=== PATIENT | female | born 1935 | race African-American/Black ===

== ENCOUNTER 2018-04-10 08:03 | Day surgery (SDC) | payer MEDICARE, MEDICAID ==
--- NOTE | 2018-04-08 15:08 | Pre-Procedure Note/Attestation ---
Pre-Procedure Note/Attestation Complete Prior to Procedure Planned Procedure: left Procedure Narrative: phaco with IOL Indications for Procedure Pre-Operative Diagnosis: cataract Attestation I attest that I discussed the nature of the procedure; its benefits; risks and complications; and alternatives (and the risks and benefits of such alternatives ), prior to the procedure, with the patient (or the patient's legal banking representative). I attest that, if there was a reasonable possibility of needing a blood transfusion, the patient (or the patient's legal banking representative) was given the [facility] standardized written summary, pursuant to the Mark Cawood Blood Safety Act ([place] Health and Safety Code # 1645, as amended). I attest that I re-evaluated the patient just prior to the surgery and that there has been no change in the patient's H&P, except as documented below: JUNIOR VAZQUEZ Apr 08, 2018 15:08
--- NOTE | 2018-04-08 15:10 | Opthalmology H&P ---
Ophthalmology H&P H&P Chief Complaint: decreased vision in left eye HPI Vision Affects Ability to: read, focus/use eyes together HPI Narrative blurry vision Exam Visual Acuity: OD: 20/60 OS: CF Tension: OD: 20 OS: 20 Eye Exam: normal OU: external exam, palpebral fissure-width, levator function, corneas, anterior chambers, fundus exam; findings: lens - OD: ns OS: ns Assessment/Plan Diagnosis: (1) Nuclear age-related cataract, left eye Treatment Plan: cataract extraction w/ lens implant Goals of Treatment: improvement of vision, enhance quality of life Attestation Attestation The risks and benefits of the surgery as well as alternative procedures were explained to the patient in detail. JUNIOR VAZQUEZ Apr 08, 2018 15:10
[2018-04-09 11:17] LABS: ANION GAP 10 mmol/L (5-15); BLOOD UREA NITROGEN 22 mg/dL (7-18); CALCIUM 9.2 MG/DL (8.5-10.1); CARBON DIOXIDE 22 MMOL/L (21-32); CHLORIDE 106 MMOL/L (98-107); CREATININE 0.8 MG/DL (0.55-1.30); POTASSIUM 4.5 MMOL/L (3.5-5.1); SODIUM 138 MMOL/L (136-145)
[2018-04-09 11:18] LABS: BASOPHILS % (AUTO) 1.3 % (0.0-2.0); EOSINOPHILS % (AUTO) 1.7 % (0.0-3.0); HEMATOCRIT 43.7 % (37.0-47.0); HEMOGLOBIN 13.7 G/DL (12.0-16.0); LYMPHOCYTES % (AUTO) 48.6 % (20.0-45.0); MEAN CORPUSCULAR VOLUME 82 FL (80-99); NEUTROPHILS % (AUTO) 40.3 % (45.0-75.0); PLATELET COUNT 307 K/UL (150-450); RED BLOOD COUNT 5.32 M/UL (4.20-5.40); RED CELL DISTRIBUTION WIDTH 14.1 % (11.6-14.8); WHITE BLOOD COUNT 9.2 K/UL (4.8-10.8)
--- NOTE | 2018-04-09 17:45 | Pre-op HX & Phy Repo 2 SIG ---
DATE OF ADMISSION: 04/10/2018 PRESURGICAL INTERNAL MEDICINE HISTORY AND PHYSICAL DATE OF EVALUATION: 04/09/2018. REASON FOR EVALUATION: I was asked by Dr. Levi Sarkar to see this 82-year-old female, who is going for elective surgery on the left eye. The patient has a cataract left eye. The patient was evaluated. Chart was reviewed. The patient has dementia and information is obtained from the daughter at bedside. PAST MEDICAL HISTORY AND REVIEW OF SYSTEMS: Remarkable for hypertension, permanent pacemaker placed last year, diabetes mellitus insulin-dependent, right ear tumor, radiation, history of chronic obstructive pulmonary disease, congestive heart failure, and chronic vertigo. The patient is wheelchair bound. No history of heart attack. No history of thyroid problems. No history of peptic ulcer disease or bleeding. No history of renal failure or anemia. PAST SURGICAL HISTORY: Permanent pacemaker and behind left ear tumor radiation. PRESENT MEDICATIONS: Include Symbicort inhaler and albuterol inhaler. Also, the patient uses a hand-held nebulizer at home. No oxygen. The patient has a back pain and uses Dermott 5 and Motrin. The patient is on Lasix 20 mg, Lantus 10 units at bedtime, amlodipine 5 mg, Celebrex 200 mg, Pepcid 20 mg, and . ALLERGIES: Not known. FAMILY HISTORY: Mother has hypertension. Father unknown. HABITS: The patient smoked in the past for about more than 60 years. Alcohol in the past. No street drugs. PHYSICAL EXAMINATION: GENERAL: Alert, overweight female, in her 80s. She is in a wheelchair. The patient's BMI is 37.7. VITAL SIGNS: Blood pressure 104/84, temperature 97.4, pulse 80, respirations 20, and O2 saturation 96% on room air. SKIN: Dry and warm. No diaphoresis. No rashes. No open wound. LYMPH NODES: Not enlarged. HEENT: Head, normocephalic. Ears, clear. Eyes, full description per Dr. Levi Sarkar. Mouth, clear and moist. Absent teeth. NECK: Supple. No jugular venous distention. No palpable mass. Thyroid gland, not enlarged. CHEST: Mild kyphosis. LUNGS: Few rhonchi on the bases, bilateral. HEART: Pacemaker, 80 beats per minute. No murmur. No S3, S4. ABDOMEN: Soft. Obese. Liver and spleen not enlarged. EXTREMITIES: No edema. No varicose vein. No calf tenderness. GENITOURINARY: No dysuria. No CVA tenderness. NEUROLOGIC: Dementia and vertigo. DIAGNOSTIC DATA: ECG, AV dual paced rhythm, 80 per minute. LABORATORY DATA: Lab work pending. IMPRESSION: 1. Cataract, left eye. 2. Insulin-dependent diabetes mellitus. 3. Hypertension, controlled. 4. Chronic obstructive pulmonary disease. 5. Permanent pacemaker. 6. Vertigo. 7. Congestive heart failure. PLAN: Cataract extraction, left eye with intraocular lens implant per Dr. Levi Sarkar. CONCLUSION: The patient is a 82-year-old with multiple problems including dementia, permanent pacemaker, congestive heart failure, and chronic obstructive pulmonary disease. The patient's blood sugar and blood pressure controlled. The patient is to be NPO after midnight tonight. I explained to daughter and the patient's condition optimized for surgery. Thank you very much, Dr. Sarkar, for the privilege to participate in presurgical care of this interesting patient. Brandon Zuluaga M.D. DR: PHIL JOB#: [id number] CC:
[2018-04-10] VITALS (11 sets, daily range): BP systolic 102–136; BP diastolic 60–79
[~2018-04-10] VITALS: Ht 152.4 cm; Wt 89.8 kg
[~2018-04-10 08:03] MED LIST: Akten 3.5% 1ml Btl LEFT EYE ONE; CELEBREX200 MG ORAL; Dexamethasone 4mg/ml vial ONE; FAMOTIDINE20 MG ORAL; FUROSEMIDE20 M1 ORAL; IBUPROFEN600 MG ORAL; Maxitrol Opth Oint 3.5gm ONE; NORCO 5-325 TA1 EACH ORAL; NORVASC5 MG ORAL; NS Irrig 1000ml ONE; PAROXETINE HCL10 MG ORAL; Pilocarpine 2% Opth 15ml Soln ONE; Pred Forte 1% Opth Susp 1ml ONE; Proparacaine 0.5% Opth Soln 15ml LEFT EYE ONE; SYMBICORT 80-10.2 G1 IH; Tetracaine 0.5% Opth 4ml Soln LEFT EYE ONE; VENTOLIN HFA18 GM INH
[2018-04-10] MEDS: Phenylephrine 10% Opth Soln 5ml LEFT EYE SCH ×3 (10:46→11:15)
[2018-04-10] MEDS: Tobramycin Op Soln 0.3% 5ml LEFT EYE SCH ×3 (10:46→11:15)
[2018-04-10] MEDS: Diclofenac Sod 0.1% Op Soln LEFT EYE SCH ×3 (10:47→11:15)
[2018-04-10] MEDS: Tropicamide 1% Opth 15ml Soln LEFT EYE SCH ×3 (10:47→11:16)
[2018-04-10] MEDS: Cyclopentolate 1% Opth Sol 2ml LEFT EYE SCH ×3 (10:47→11:15)
[2018-04-10] MEDS ORDERED: Midazolam 2mg/2ml Inj ONE (11:54)
[2018-04-10] MEDS ORDERED: LR 1000ml 1,000 ML IVLG SCH (12:25)
--- NOTE | 2018-04-10 12:25 | Anethesia Preoperative Eval ---
Anesthesia Pre-op PMH/ROS General Date of Evaluation: Apr 10, 2018 Time of Evaluation: 12:01 Anesthesiologist: Tammie ASA Score: ASA 3 Mallampati Score Class I : Soft palate, uvula, fauces, pillars visible Class II: Soft palate, uvula, fauces visible Class III: Soft palate, base of uvula visible Class IV: Only hard plate visible Mallampati Classification: Class III Surgeon: Antonina Diagnosis: L eye cataract Surgical Procedure: L eye cataract extraction Anesthesia History: none Social History: smoking - h/o Family History: no anesthesia problems Allergies: Coded Allergies: No Known Allergies (Unverified , 04/09/18) Medications: see eMAR Past Medical History Cardiovascular: Reports: HTN, arrhythmia - pacemaker in place Pulmonary: Reports: COPD; Denies: asthma, PINO, other Gastrointestinal/Genitourinary: Reports: GERD; Denies: CRI, ESRD, other Neurologic/Psychiatric: Reports: dementia - mild; Denies: CVA, depression/anxiety, TIA, other Endocrine: Reports: hypothyroidism; Denies: DM, steroids, other HEENT: Reports: cataract (L), cataract (R); Denies: glaucoma, [place] (L), [place] (R), other Hematology/Immune: Denies: anemia, DVT, bleeding disorder, other Musculoskeletal/Integumentary: Reports: DJD; Denies: OA, RA, DDD, edema, other Other: obesity PMH Narrative: as above PSxH Narrative: See H&P Anesthesia Pre-op Phys. Exam Physician Exam Last Vital Signs Date Time Temp Pulse Resp B/P (MAP) Pulse Ox O2 Delivery O2 Flow Rate FiO2 04/10/18 10:55 Room Air 04/10/18 10:49 97.7 81 18 120/60 (80) 95 97.7 Constitutional: NAD, other Neurologic: CN 2-12 intact Cardiovascular: RRR Respiratory: CTA Gastrointestinal: other - obesity Airway Exam Mallampati Score: Class III MO: limited Neck: short ROM: limited Teeth: missing Dentures: no upper, no lower Anesthesia Pre-op A/P Labs see chart Studies Pre-op Studies: EKG Risk Assessment & Plan Assessment: ASA 3 Plan: MAC Status Change Before Surgery: No Pre-Antibiotics Drug: none Chirag Cho MD Apr 10, 2018 12:25
[2018-04-10] MEDS ORDERED: DiphenhydrAMINE 50mg/ml Inj IVP PRN (12:30)
[2018-04-10] MEDS ORDERED: fentaNYL 100 mcg/2 mL IV PRN (12:30)
--- NOTE | 2018-04-10 12:45 | Immediate Post-Op Evaluation ---
Immediate Post-Op Evalulation Immediate Post-Op Evalulation Procedure: L eye cataract extraction with IOL Date of Evaluation: Apr 10, 2018 Time of Evaluation: 12:44 IV Fluids: 200 Blood Products: none Estimated Blood Loss: none Urinary Output: none Blood Pressure Systolic: 134 Blood Pressure Diastolic: 72 Pulse Rate: 80 Respiratory Rate: 20 O2 Sat by Pulse Oximetry: 98 Temperature (Fahrenheit): 97.5 Pain Score (1-10): 1 Nausea: No Vomiting: No Complications none Patient Status: awake, patent, none Hydration Status: adequate Chirag Cho MD Apr 10, 2018 12:45
[2018-04-10] MEDS ORDERED: BSS 15ml BTL ONE (12:56)
[2018-04-10] MEDS ORDERED: EPINEPHrine 1mg/1ml Amp ONE (12:56)
[2018-04-10] MEDS ORDERED: BSS 500ml btl ONE (12:56)
[2018-04-10] MEDS ORDERED: Sodium Hyaluronate 14 mg/ml 0.85ml ONE (12:57)
[2018-04-10] MEDS ORDERED: Sodium Hyaluronate 10 mg/ml 0.85ml ONE (12:57)
[2018-04-10] MEDS ORDERED: Povidone-Iodine 5% opth solution ONE (12:57)
--- NOTE | 2018-04-10 15:02 | 48 Hour Post Anesthesia Eval ---
Post Anesthesia Evaluation Procedure: L eye cataract extraction with IOL Date of Evaluation: Apr 10, 2018 Time of Evaluation: 13:20 Blood Pressure Systolic: 136 0: 76 Pulse Rate: 80 Respiratory Rate: 20 Temperature (Fahrenheit): 97.6 O2 Sat by Pulse Oximetry: 98 Airway: patent Nausea: No Vomiting: No Pain Intensity: 1 Hydration Status: adequate Cardiopulmonary Status: stable Mental Status/LOC: patient returned to baseline Follow-up Care/Observations: n/a Post-Anesthesia Complications: none Follow-up care needed: ready to discharge Chirag Cho MD Apr 10, 2018 15:01
--- NOTE | 2018-04-13 19:53 | Brief Operative Note ---
Immediate Post Operative Note Operative Note Chief Complaint: blurry vision Pre-op Diagnosis: cataract, OS Procedure: phaco with IOL, OS Post-op Diagnosis: pseudophakia Post-op Diagnosis: same as pre-op Findings: consistent w/pre-op dx studies Surgeon: Antonina Anesthesiologist: Tammie Anesthesia: MAC Specimen: none Complications: none Condition: stable Fluids: LR Estimated Blood Loss: none Drains: none Implant(s) used?: Yes JUNIOR VAZQUEZ Apr 13, 2018 19:53
--- NOTE | 2018-04-13 19:55 | Operative Note - PDOC ---
Operative Note Operative Note Date of Operation/Procedure: Apr 10, 2018 Chief Complaint: blurry vision Pre-op Diagnosis: cataract, OS Procedure: phaco with IOL, OS Post-op Diagnosis: pseudophakia Post-op Diagnosis: same as pre-op Operative Findings: consistent w/pre-op dx studies Surgeon: Antonina Anesthesiologist: Tammie Anesthesia: MAC Specimen: none Complications: none Condition: stable Fluids: LR Estimated Blood Loss: none Drains: none Implant(s) used?: Yes Indications for Procedure cataract Description of Procedure This patient has been complaining visually significant cataract in the affected eye with the best corrected visual acuity under moderate glare conditions worse. The patient complains of difficulties with glare in performing activities of daily living and wants to manage personal affairs with comfort and accuracy and see well enough to move with safety at home and outdoors. ~~~ The risks, benefits and alternatives of the procedure were discussed with the patient in the office prior to scheduling surgery. All questions from the patient were answered after the surgical procedure was explained in detail. The risks of the procedure as explained to the patient include, but are not limited to, pain, infection, bleeding, loss of vision, retinal detachment, need for further surgery, loss of lens nucleus, double vision, etc. Alternative procedures were discussed which include, to do nothing or seek a second opinion. Informed consent for this procedure was obtained from the patient. The patient was referred to a primary care physician for a cardiopulmonary clearance prior to surgery, after proper evaluation was done patient was properly scheduled for outpatient surgery. The patient was brought to the operating room where the anesthesiologist established I.V. lines and cardiac monitoring leads. Mild intravenous sedation was administered.~The patient was then prepared with a 5% solution of povidone- iodine to the conjunctival fornix and lashes, and a 5% solution of povidone- iodine to the lids and periorbital skin. The patient was then draped in the usual sterile fashion. A lid speculum was then placed in the operative eye. A keratome blade was then used to create a biplanar incision into the anterior chamber. Viscoelastics was then instilled into the anterior chamber. A capsulorrhexis was then fashioned with an utrata forceps and a G 27 cannula were then used to hydrodissect and hydro delineate the lens. Paracentesis incision was made at 3 o'clock with sharp blade. The phacoemulsification unit, after being properly adjusted ~and tested, was then used to emulsify the nucleus. Residual cortical material was aspirated with the irrigation and aspiration unit. Healon was then instilled into the anterior chamber. The corneal wound was then enlarged to the size of the optic with the xochitl keratome blade. The intraocular lens was then inspected for right ~power and size and thought to be satisfactory. Then the lens was gently placed in the capsular bag. Positioning within the capsular bag was confirmed by direct visualization. Optic centration was accomplished with a Sinskey hook. Viscoelastics ~was removed from the anterior chamber using the irrigation and aspiration unit. The corneal wound was then tested for leaks and none were found. The lid speculum were then removed. Sponge and needle counts were correct. An eye patch and shield were placed over the operative eye. The patient was taken to the recovery room in stable condition. There were no complications. The patient tolerated the procedure well. The patient was then transferred to the ambulatory surgery unit in stable and satisfactory condition , was given detailed written instructions and asked to follow up ~in the office the next day. JUNIOR VAZQUEZ Apr 13, 2018 19:55
== END 2018-04-10 14:05 | disposition home or self-care (01) ==
LOC: SUR 08:03
DX: H25.12 Age-related nuclear cataract, left eye (principal); I11.0 Hypertensive heart disease with heart failure; I50.9 Heart failure, unspecified; J44.9 Chronic obstructive pulmonary disease, unspecified; E11.9 Type 2 diabetes mellitus without complications; Z79.4 Long term (current) use of insulin; K21.9 Gastro-esophageal reflux disease without esophagitis; E03.9 Hypothyroidism, unspecified; M19.90 Unspecified osteoarthritis, unspecified site; R42 Dizziness and giddiness; E66.9 Obesity, unspecified; Z68.37 Body mass index [BMI] 37.0-37.9, adult; F03.90 Unspecified dementia, unspecified severity, without behavioral disturbance, psychotic disturbance, mood disturbance, and anxiety; Z95.0 Presence of cardiac pacemaker; Z87.891 Personal history of nicotine dependence
CPT/HCPCS: 36415; 66984; 80048; 82962; 85025; 85610; 85730; 93005; J0171; J1100; J2250; J3370; V2632; 94003; 94150

== ENCOUNTER 2018-05-12 05:12 | Day surgery (SDC) | payer MEDICARE, MEDICAID ==
--- NOTE | 2018-05-11 10:29 | Opthalmology H&P ---
Ophthalmology H&P H&P Chief Complaint: decreased vision in right eye HPI Vision Affects Ability to: read, manage personal affairs Exam Eye Exam: normal OU: external exam, palpebral fissure-width, marginal reflex distance, levator function, corneas, anterior chambers; findings: lens - RIGHT EYE +3NS LEFT EYE IOL Attestation Attestation The risks and benefits of the surgery as well as alternative procedures were explained to the patient in detail. Levi Sarkar MD May 11, 2018 10:29
--- NOTE | 2018-05-11 10:43 | Opthalmology H&P ---
Ophthalmology H&P H&P Chief Complaint: decreased vision in right eye HPI Vision Affects Ability to: read, manage personal affairs Past Ocular History: other - PSEUDOPHEKIA RIGHT EYE HPI Narrative PATIENT COMPLAINTS OF BLURRY VISION RIGHT EYE Exam Visual Acuity: RIGHT EYE 20/60 LEFT EYE 20/60 Tension: RIGHT EYE 15 LEFT EYE 16 Eye Exam: normal OU: external exam, palpebral fissure-width, marginal reflex distance, levator function, corneas, anterior chambers, lens - RIGHT EYE +3NS LEFT EYE IOL; findings: lens - RIGHT EYE +3NS LEFT EYE IOL, fundus exam - RIGHT EYE: POOR VIEW LEFT EYE: NORMAL Assessment/Plan Diagnosis: (1) Nuclear sclerotic cataract of right eye Treatment Plan: cataract extraction w/ lens implant Goals of Treatment: improvement of vision, enhance quality of life Attestation Attestation The risks and benefits of the surgery as well as alternative procedures were explained to the patient in detail. Levi Sarkar MD May 11, 2018 10:43
--- NOTE | 2018-05-11 10:45 | Pre-Procedure Note/Attestation ---
Pre-Procedure Note/Attestation Complete Prior to Procedure Planned Procedure: right Procedure Narrative: CATARACT EXTRACTION WITH IOL IMPLANT TO RIGHT EYE Indications for Procedure Pre-Operative Diagnosis: NUCLEAR SCLEROTIC CATARACT RIGHT EYE Attestation I attest that I discussed the nature of the procedure; its benefits; risks and complications; and alternatives (and the risks and benefits of such alternatives ), prior to the procedure, with the patient (or the patient's legal representative phlebotomy services). I attest that, if there was a reasonable possibility of needing a blood transfusion, the patient (or the patient's legal representative phlebotomy services) was given the [facility] standardized written summary, pursuant to the Mark Sadia Blood Safety Act ([place] Health and Safety Code # 1645, as amended). I attest that I re-evaluated the patient just prior to the surgery and that there has been no change in the patient's H&P, except as documented below: Levi Sarkar MD May 11, 2018 10:45
[2018-05-12] VITALS (9 sets, daily range): BP systolic 115–140; BP diastolic 60–90
[~2018-05-12] VITALS: Ht 154.9 cm; Wt 88.5 kg
[~2018-05-12 05:12] MED LIST changes: -Akten 3.5% 1ml Btl LEFT EYE ONE; -Dexamethasone 4mg/ml vial ONE; +LANTUS SOL100 UNIT/1 SUBQ; -Maxitrol Opth Oint 3.5gm ONE; -NS Irrig 1000ml ONE; -Pilocarpine 2% Opth 15ml Soln ONE; -Pred Forte 1% Opth Susp 1ml ONE; -Proparacaine 0.5% Opth Soln 15ml LEFT EYE ONE; -Tetracaine 0.5% Opth 4ml Soln LEFT EYE ONE
[2018-05-12] MEDS: Cyclopentolate 1% Opth Sol 2ml RIGHT EYE SCH ×3 (05:54→06:21)
[2018-05-12] MEDS: Diclofenac Sod 0.1% Op Soln RIGHT EYE SCH ×3 (05:54→06:21)
[2018-05-12] MEDS: Phenylephrine 10% Opth Soln 5ml RIGHT EYE SCH ×3 (05:55→06:22)
[2018-05-12] MEDS: Tropicamide 1% Opth 15ml Soln RIGHT EYE SCH ×3 (05:55→06:22)
[2018-05-12] MEDS: Tobramycin Op Soln 0.3% 5ml RIGHT EYE SCH ×3 (05:56→06:24)
[2018-05-12] MEDS ORDERED: EPINEPHrine 1mg/1ml Amp ONE (06:54)
[2018-05-12] MEDS ORDERED: BSS 15ml BTL ONE (06:55)
[2018-05-12] MEDS ORDERED: Dexamethasone 4mg/ml vial ONE (06:55)
[2018-05-12] MEDS ORDERED: Povidone-Iodine 5% opth solution ONE (06:55)
[2018-05-12] MEDS ORDERED: BSS 500ml btl ONE (06:55)
[2018-05-12] MEDS ORDERED: Sodium Hyaluronate 14 mg/ml 0.85ml ONE (06:55)
[2018-05-12] MEDS ORDERED: Proparacaine 0.5% Opth Soln 15ml RIGHT EYE ONE (07:00)
[2018-05-12] MEDS ORDERED: Tetracaine 0.5% Opth 4ml Soln RIGHT EYE ONE (07:00)
[2018-05-12] MEDS ORDERED: Akten 3.5% 1ml Btl RIGHT EYE ONE (07:00)
[2018-05-12] MEDS ORDERED: Pred Forte 1% Opth Susp 1ml ONE (07:28)
[2018-05-12] MEDS ORDERED: LR 1000ml 1,000 ML IVLG SCH (07:50)
--- NOTE | 2018-05-12 07:57 | Anethesia Preoperative Eval ---
Anesthesia Pre-op PMH/ROS General Date of Evaluation: May 12, 2018 Time of Evaluation: 07:00 Anesthesiologist: Anuradha ASA Score: ASA 3 Mallampati Score Class I : Soft palate, uvula, fauces, pillars visible Class II: Soft palate, uvula, fauces visible Class III: Soft palate, base of uvula visible Class IV: Only hard plate visible Mallampati Classification: Class III Surgeon: Antonina Diagnosis: Cataract right eye Surgical Procedure: Extraction of cataract with IOL right eye Family History: no anesthesia problems Allergies: Coded Allergies: No Known Allergies (Unverified , 04/09/18) Medications: see eMAR Patient NPO?: Yes NPO Date: May 11, 2018 NPO Time: 19:00 Past Medical History Cardiovascular: Reports: HTN, arrhythmia - PPM; Denies: CAD, [place], valve dz, other Pulmonary: Reports: COPD; Denies: asthma, PINO, other Gastrointestinal/Genitourinary: Denies: GERD, CRI, ESRD, other Neurologic/Psychiatric: Denies: dementia, CVA, depression/anxiety, TIA, other Endocrine: Reports: DM; Denies: hypothyroidism, steroids, other HEENT: Reports: cataract (L), cataract (R); Denies: glaucoma, [place] (L), [place] (R), other Hematology/Immune: Denies: anemia, DVT, bleeding disorder, other Musculoskeletal/Integumentary: Denies: OA, RA, DJD, DDD, edema, other Other: obesity PMH Narrative: HTN, COPD, DM, PPM, obesity PSxH Narrative: Cataract, abdominal surgery, lumbar surgery Anesthesia Pre-op Phys. Exam Physician Exam Last Vital Signs Date Time Temp Pulse Resp B/P (MAP) Pulse Ox O2 Delivery O2 Flow Rate FiO2 05/12/18 06:09 97.7 81 20 117/70 98 Room Air Constitutional: NAD Neurologic: CN 2-12 intact Cardiovascular: RRR, no M/R/G Respiratory: CTA Gastrointestinal: S/NT/ND Airway Exam Mallampati Score: Class III MO: full ROM: full Teeth: missing Anesthesia Pre-op A/P Labs WNL except for increased BS Accucheck 116 Studies Pre-op Studies: EKG - PPM Risk Assessment & Plan Assessment: Class 3 patient for cataract extraction Plan: MAC Status Change Before Surgery: No Pre-Antibiotics Drug: None Mark Ling MD May 12, 2018 07:57
--- NOTE | 2018-05-12 07:58 | Immediate Post-Op Evaluation ---
Immediate Post-Op Evalulation Immediate Post-Op Evalulation Procedure: Cataract extraction with IOL right eye Date of Evaluation: May 12, 2018 Time of Evaluation: 09:22 IV Fluids: 250 Blood Pressure Systolic: 117 Blood Pressure Diastolic: 76 Pulse Rate: 80 Respiratory Rate: 22 O2 Sat by Pulse Oximetry: 97 Temperature (Fahrenheit): 97.6 Pain Score (1-10): 0 Nausea: No Vomiting: No Complications No complication Patient Status: awake, patent, none Hydration Status: adequate Drug: None Mark Ling MD May 12, 2018 07:58
[2018-05-12] MEDS ORDERED: Midazolam 2mg/2ml Inj ONE (08:16)
[2018-05-12] MEDS ORDERED: LR 1000ml ONE (08:16)
--- NOTE | 2018-05-12 09:19 | 48 Hour Post Anesthesia Eval ---
Post Anesthesia Evaluation Procedure: Cataract extraction with IOL right eye Date of Evaluation: May 12, 2018 Time of Evaluation: 09:40 Blood Pressure Systolic: 113 0: 77 Pulse Rate: 80 Respiratory Rate: 20 O2 Sat by Pulse Oximetry: 97 Airway: patent Nausea: No Vomiting: No Pain Intensity: 2 If pain is > 6 Comment: Fentanyl given Hydration Status: adequate Cardiopulmonary Status: Stable Mental Status/LOC: patient returned to baseline Follow-up Care/Observations: As per surgery Post-Anesthesia Complications: No anesthetic complication Follow-up care needed: N/A Mark Ling MD May 12, 2018 09:19
[2018-05-12] MEDS ORDERED: fentaNYL 100 mcg/2 mL IV SCH (09:45)
[2018-05-12] MEDS ORDERED: fentaNYL 100 mcg/2 mL IV ONE (09:46)
--- NOTE | 2018-05-12 12:00 | Operative Note - PDOC ---
Operative Note Operative Note Date of Operation/Procedure: May 12, 2018 Chief Complaint: blurry vision Pre-op Diagnosis: NUCLEAR SCLEROTIC CATARACT RIGHT EYE Procedure: phaco with IOL Post-op Diagnosis: Pseudophakia Post-op Diagnosis: same as pre-op Operative Findings: consistent w/pre-op dx eve - Antonina Surgeon: Antonina Anesthesiologist: Anuradha Anesthesia: MAC Specimen: none Complications: none Condition: stable Fluids: LR Estimated Blood Loss: none Drains: none Implant(s) used?: Yes Indications for Procedure cataract Description of Procedure This patient has been complaining visually significant cataract in the affected eye with the best corrected visual acuity under moderate glare conditions worse. The patient complains of difficulties with glare in performing activities of daily living and wants to manage personal affairs with comfort and accuracy and see well enough to move with safety at home and outdoors. The risks, benefits and alternatives of the procedure were discussed with the patient in the office prior to scheduling surgery. All questions from the patient were answered after the surgical procedure was explained in detail. The risks of the procedure as explained to the patient include, but are not limited to, pain, infection, bleeding, loss of vision, retinal detachment, need for further surgery, loss of lens nucleus, double vision, etc. Alternative procedures were discussed which include, to do nothing or seek a second opinion. Informed consent for this procedure was obtained from the patient. The patient was referred to a primary care physician for a cardiopulmonary clearance prior to surgery, after proper evaluation was done patient was properly scheduled for outpatient surgery. The patient was brought to the operating room where the anesthesiologist established I.V. lines and cardiac monitoring leads. Mild intravenous sedation was administered. The patient was then prepared with a 5% solution of povidone -iodine to the conjunctival fornix and lashes, and a 5% solution of povidone- iodine to the lids and periorbital skin. The patient was then draped in the usual sterile fashion. A lid speculum was then placed in the operative eye. A keratome blade was then used to create a biplanar incision into the anterior chamber. Viscoelastics was then instilled into the anterior chamber. A capsulorrhexis was then fashioned with an utrata forceps. BSS and a cannula were then used to hydrodissect and hydro delineate the lens. Paracentesis incision was made at 3 o'clock with sharp blade. The phacoemulsification unit, after being properly adjusted and tested, was then used to emulsify the nucleus. Residual cortical material was aspirated with the irrigation and aspiration unit. Healon was then instilled into the anterior chamber. The corneal wound was then enlarged to the size of the optic with the xochitl keratome blade. The intraocular lens was then inspected for right power and size and thought to be satisfactory. Then the lens was gently placed in the capsular bag. Positioning within the capsular bag was confirmed by direct visualization. Optic centration was accomplished with a Sinskey hook. Viscoelastics was removed from the anterior chamber using the irrigation and aspiration unit. The corneal wound was then tested for leaks and none were found. The lid speculum were then removed. Sponge and needle counts were correct. An eye patch and shield were placed over the operative eye. The patient was taken to the recovery room in stable condition. There were no complications. The patient tolerated the procedure well. The patient was then transferred to the ambulatory surgery unit in stable and satisfactory condition , was given detailed written instructions and asked to follow up in the office the next day. Levi Sarkar MD May 12, 2018 12:00
--- NOTE | 2018-05-12 12:00 | Brief Operative Note ---
Immediate Post Operative Note Operative Note Chief Complaint: blurry vision Pre-op Diagnosis: NUCLEAR SCLEROTIC CATARACT RIGHT EYE Procedure: phaco with IOL Post-op Diagnosis: Pseudophakia Post-op Diagnosis: same as pre-op Findings: consistent w/pre-op dx eve - Antonina Surgeon: Antonina Anesthesiologist: Anuradha Anesthesia: MAC Specimen: none Complications: none Condition: stable Fluids: LR Estimated Blood Loss: none Drains: none Implant(s) used?: Yes Levi Sarkar MD May 12, 2018 12:00
[2018-05-14] MEDS ORDERED: Tetracaine 0.5% Opth 4ml Soln RIGHT EYE ONE ×2 (07:00)
[2018-05-14] MEDS ORDERED: Tropicamide 1% Opth 15ml Soln RIGHT EYE SCH ×2 (07:00)
[2018-05-14] MEDS ORDERED: Diclofenac Sod 0.1% Op Soln RIGHT EYE SCH ×2 (07:00)
[2018-05-14] MEDS ORDERED: Cyclopentolate 1% Opth Sol 2ml RIGHT EYE SCH ×2 (07:00)
[2018-05-14] MEDS ORDERED: Akten 3.5% 1ml Btl RIGHT EYE ONE ×2 (07:00)
[2018-05-14] MEDS ORDERED: Proparacaine 0.5% Opth Soln 15ml RIGHT EYE ONE ×2 (07:00)
[2018-05-14] MEDS ORDERED: Phenylephrine 10% Opth Soln 5ml RIGHT EYE SCH ×2 (07:00)
[2018-05-14] MEDS ORDERED: Tobramycin Op Soln 0.3% 5ml RIGHT EYE SCH ×2 (09:30)
--- NOTE | 2018-05-14 19:30 | Pre-op HX & Phy Repo 2 SIG ---
DATE OF ADMISSION: 05/12/2018 DATE OF EVALUATION: 05/12/2018 REASON FOR EVALUATION: I was asked by Dr. Levi Sarkar to see this 82-year-old female who going for elective surgery on the right eye. The patient has a cataract, right eye. Please see full ophthalmology history and physical by Dr. Levi Sarkar. The patient was evaluated. Chart was reviewed. This is second visit to [facility]. The patient had a left eye cataract removed approximately a month ago. Please see old records. PAST MEDICAL HISTORY AND REVIEW OF SYSTEMS: Remarkable for hypertension, insulin-dependent diabetes mellitus, dementia, brain tumor. No history of stroke. No history of heart attack. The patient has a permanent pacemaker and also history of COPD. No thyroid problems. The patient is overweight. PAST SURGICAL HISTORY: Permanent pacemaker, surgery of spine with tumor and radiation to the brain, and left eye cataract. FAMILY HISTORY: Mother has hypertension. Father, unknown. ALLERGIES: Not known. MEDICATIONS: Present medications, Symbicort, albuterol inhalers, Lantus last night received 7 units, using oxygen at home, amlodipine, nitroglycerin sublingual as needed, Motrin and Celebrex. SOCIAL HISTORY: The patient smoked for approximately 60 years. Denied alcohol or street drug use. PHYSICAL EXAMINATION: GENERAL: Elderly female. Information obtained from the brother. No acute distress. VITAL SIGNS: Blood pressure 117/70, temperature 97.7, pulse 81 and regular, respirations 20, O2 saturation 98% on room air. SKIN: Warm, clear. No rashes. LYMPH NODES: Not enlarged. HEENT: Head, normocephalic and atraumatic. Ears, clear. No discharge. Eyes, full description per Dr. Levi Sarkar. Mouth, absence of teeth. NECK: No jugular venous distention. Carotids artery +2. Trachea midline. CHEST: No deformity or asymmetry. LUNGS: Few rhonchi bilaterally. HEART: Pacemaker. No murmur. ABDOMEN: Obese. Soft. No rebound. No palpable mass. No organomegaly. EXTREMITIES: No edema. No deformity. GENITOURINARY: No CVA tenderness. . The patient is NPO since midnight. Fasting blood sugar today 116. IMPRESSION: 1. Cataract, right eye. 2. Insulin-dependent diabetes mellitus. 3. Permanent pacemaker. 4. Atherosclerotic heart disease. 5. Chronic obstructive pulmonary disease. 6. Obesity. PLAN: Cataract extraction, right eye with intraocular lens implant per Dr. Leiv Sarkar. CONCLUSION: The patient has multiple medical problems including hypertension, pacemaker, history of COPD. The patient's vital signs are stable. O2 saturation normal on room air. The patient's blood sugar today is 116. The patient did not eat or drink from midnight. The patient's condition optimized for surgery. Thank you very much, Dr. Sarkar, for the privilege to participate in presurgical care of this interesting patient. Brandon Zuluaga M.D. DR: Garrick JOB#: [id number] CC:
== END 2018-05-12 10:50 | disposition home or self-care (01) ==
LOC: SUR 05:12
DX: H25.11 Age-related nuclear cataract, right eye (principal); E11.9 Type 2 diabetes mellitus without complications; Z79.4 Long term (current) use of insulin; I25.10 Atherosclerotic heart disease of native coronary artery without angina pectoris; I10 Essential (primary) hypertension; E66.9 Obesity, unspecified; F03.90 Unspecified dementia, unspecified severity, without behavioral disturbance, psychotic disturbance, mood disturbance, and anxiety; J44.9 Chronic obstructive pulmonary disease, unspecified; D43.2 Neoplasm of uncertain behavior of brain, unspecified; Z87.891 Personal history of nicotine dependence; Z95.0 Presence of cardiac pacemaker
CPT/HCPCS: 66984; 82962; J0171; J1100; J2250; J3010; J3370; V2632; 94003; 94150